=== PATIENT | female | born 1995 | race Caucasian/White ===

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

== ENCOUNTER 2017-06-05 17:05 | Emergency (ER) | payer BC ==
[~2017-06-05] VITALS: Ht 157.5 cm; Wt 54.0 kg
[2017-06-05 17:24] VITALS: TEMP 36.4; Ht 157.5 cm; Wt 54.0 kg
[2017-06-05] MEDS ORDERED: SODIUM CHLORIDE 0.9% 1000ML 1,000 ML IV STA (19:03)
--- NOTE | 2017-06-05 19:10 | EMERGENCY ROOM VISIT NOTE ---
History First contact with patient: 18:36 Chief Complaint: SYNCOPE Stated Complaint: DIZZINES, HEADACHE, SYNCOPE- [facility] REFERRED Nursing Triage Summary: pt reports dizzy and fainted this am went to [facility] sent here for further eval. was at [employer] this past weekend History of Present Illness The patient is a 22 year old female who presents to the Emergency Room with complaints of a syncopal episode which occurred this morning. The patient reports that today, she woke up prior to her 8 am class and felt dizzy immediately upon waking. She states that when she stood up, she passed out. She denies hitting her head when she passed out. She had a similar episode one week ago. The patient does report a history of syncopal episodes and has been told that her blood pressure runs low. She reports this is a hydration/ nutrition issue and she has attempted to alter her diet to help prevent these episodes. She does report that she participated in [employer] this weekend and did not have much to eat throughout the weekend. She does try to drink 2-3 bottles of water per day. She states that she has a mild headache at this time but denies any other complaints. The episode was not associated with any chest pain or shortness of breath. The patient has never followed up with a specialist regarding these episodes. She denies any alcohol or drug use. Review of Systems A complete 10 point review of systems was reviewed with the patient with pertinent positives and negatives as per history of present illness. All else were negative. Past Medical/Surgical History Medical Problems: (1) Migraine-cluster headache syndrome (2) Osteoid osteoma (3) Swollen lymph nodes Surgical Problems: (1) History of knee surgery Family History Cancer Diabetes mellitus Hypertension Kidney disease Kidney stones Social History Smoking Status: Never Smoker Alcohol Use: none Drug Use: none Marital Status: single Housing Status: lives with roommate Occupation Status: [employer] student Current/Historical Medications Scheduled Etonogestrel (Nexplanon), 68 MG INTRAD UD Physical Exam Vital Signs Date Time Temp Pulse Resp B/P (MAP) Pulse Ox O2 Delivery O2 Flow Rate FiO2 06/05/17 21:01 74 15 119/85 100 06/05/17 20:34 70 06/05/17 20:00 61 15 111/64 99 Room Air 59 119/75 74 124/85 06/05/17 20:00 100 Room Air 06/05/17 17:24 36.4 79 18 103/68 99 Room Air Physical Exam VITALS: Vitals are noted on the nurse's note and reviewed by myself. Vital signs stable. GENERAL: This is a 22-year-old female, in no acute distress, nondiaphoretic, well-developed well-nourished. SKIN: The skin was without rashes. HEAD: Normocephalic atraumatic. EARS: External auditory canals clear, tympanic membranes pearly perez without erythema or effusion bilaterally. EYES: Pupils equal round and reactive to light and accommodation. Extraocular movements intact. MOUTH: Mucous membranes moist. Tonsils are not enlarged. Pharynx without erythema or exudate. NECK: Supple without nuchal rigidity. No lymphadenopathy. HEART: Regular rate and rhythm without murmurs gallops or rubs. LUNGS: Clear to auscultation bilaterally without wheezes, rales or rhonchi. MUSCULOSKELETAL: Strength 5/5 throughout. NEURO: Patient was alert and oriented to person place and time. No focal neurological deficits. Medical Decision & Procedures Laboratory Results 06/05/17 19:20 Red Blood Count 4.44, Mean Corpuscular Volume 84.7, Mean Corpuscular Hemoglobin 28.8, Mean Corpuscular Hemoglobin Concent 34.0, Mean Platelet Volume 9.5, Neutrophils (%) (Auto) 40.2, Lymphocytes (%) (Auto) 48.7, Monocytes (%) (Auto) 8.8, Eosinophils (%) (Auto) 1.6, Basophils (%) (Auto) 0.5, Neutrophils # (Auto) 2.29, Lymphocytes # (Auto) 2.77, Monocytes # (Auto) 0.50, Eosinophils # (Auto) 0.09, Basophils # (Auto) 0.03 06/05/17 19:20 Test 06/05/17 19:10 06/05/17 19:20 Urine Color KAT Urine Appearance SL CLOUDY (CLEAR) Urine pH 7.0 (4.5-7.5) Urine Specific [place] 1.010 (1.000-1.030) Urine Protein NEG (NEG) Urine Glucose (UA) NEG (NEG) Urine Ketones NEG (NEG) Urine Occult Blood 3+ (NEG) Urine Nitrite NEG (NEG) Urine Bilirubin NEG (NEG) Urine Urobilinogen NEG (NEG) Urine Leukocyte Esterase NEG (NEG) Urine RBC >30 /hpf (0-4) Urine WBC 1-5 /hpf (0-5) Urine Epithelial Cells >30 /lpf (0-5) Urine Bacteria NEG (NEG) Urine Test NEG (NEG) White Blood Count 5.69 K/uL (4.8-10.8) Red Blood Count 4.44 M/uL (4.2-5.4) Hemoglobin 12.8 g/dL (12.0-16.0) Hematocrit 37.6 % (37-47) Mean Corpuscular Volume 84.7 fL (80-100) Mean Corpuscular Hemoglobin 28.8 pg (25-34) Mean Corpuscular Hemoglobin Concent 34.0 g/dl (32-36) Platelet Count 253 K/uL (130-400) Mean Platelet Volume 9.5 fL (7.4-10.4) Neutrophils (%) (Auto) 40.2 % Lymphocytes (%) (Auto) 48.7 % Monocytes (%) (Auto) 8.8 % Eosinophils (%) (Auto) 1.6 % Basophils (%) (Auto) 0.5 % Neutrophils # (Auto) 2.29 K/uL (1.4-6.5) Lymphocytes # (Auto) 2.77 K/uL (1.2-3.4) Monocytes # (Auto) 0.50 K/uL (0.11-0.59) Eosinophils # (Auto) 0.09 K/uL (0-0.5) Basophils # (Auto) 0.03 K/uL (0-0.2) RDW Standard Deviation 40.4 fL (36.4-46.3) RDW Coefficient of Variation 13.1 % (11.5-14.5) Immature Granulocyte % (Auto) 0.2 % Immature Granulocyte # (Auto) 0.01 K/uL (0.00-0.02) Anion Gap 7.0 mmol/L (3-11) Est Creatinine Clear Calc Drug Dose 78.0 ml/min Estimated GFR () 105.3 Estimated GFR (Non- 90.8 BUN/Creatinine Ratio 12.4 (10-20) Calcium Level 8.3 mg/dl (8.5-10.1) Total Bilirubin 0.3 mg/dl (0.2-1) Aspartate Amino Transf (AST/SGOT) 14 U/L (15-37) Alanine Aminotransferase (ALT/SGPT) 17 U/L (12-78) Alkaline Phosphatase 56 U/L (45-117) Troponin I < 0.015 ng/ml (0-0.045) Total Protein 7.3 gm/dl (6.4-8.2) Albumin 3.9 gm/dl (3.4-5.0) Globulin 3.4 gm/dl (2.5-4.0) Albumin/Globulin Ratio 1.2 (0.9-2) Thyroid Stimulating Hormone (TSH) 1.870 uIu/ml (0.300-4.500) Medications Administered Medications (Trade) Dose Ordered Sig/Monica Route Start Time Stop Time Status Last Admin Dose Admin Sodium Chloride 1,000 ml @ 999 mls/hr Q1H1M STAT IV 06/05/17 19:03 06/05/17 20:03 DC 06/05/17 20:06 999 MLS/HR ECG Per My Interpretation Rate (beats per minute): 51 Rhythm: sinus bradycardia (w/ sinus arrhythmia) Findings: no acute ischemic change, no ectopy Change: no significant change Medical Decision Differential diagnosis includes POTS, vasovagal syncope, dehydration, cardiogenic syncope, hypothyroidism, electrolyte abnormalities, anemia, among others. The patient is a 22-year-old female who presents today complaining of a syncopal episode which occurred this morning. Patient had an additional similar episode last week. She is asymptomatic at this time. She has had multiple syncopal episodes in the past and has had extensive workup here, including CTA of the chest on 2 separate occasions. Labs today revealed no leukocytosis, anemia or concerning electrolyte abnormalities. Patient is not . Urinalysis was not suggestive of infection. EKG was interpreted by myself and shows a sinus bradycardia, unchanged from previous EKGs. Orthostatic vital signs were measured and were found to be negative, however the nurse did report to me that upon initial position change, the patient became very tachycardic and had reproduction of symptoms. Her symptoms and persistent syncopal episodes may be secondary to underlying POTS. Her paperwork from [employer] also questions possibility of an eating disorder which may be attributing to the patient's symptoms as well. Either way, she should have close follow-up with [facility] and would likely benefit from cardiology evaluation. She was given information for a local detective. I encouraged her to continue to stay well-hydrated, especially before going to bed. Based on the patient's presentation and work up, I feel the patient is stable for outpatient treatment. The patient was educated to return to the emergency department for any worsening of their current condition or new/concerning symptoms. She will follow up with [facility] services/cardiology. Medication Reconcilliation Current Medication List: was personally reviewed by me Blood Pressure Screening Patient's blood pressure: Normal blood pressure Impression Primary Impression: Syncopal episodes Departure Information Dispostion Home / Self-Care Condition GOOD Referrals [facility] (PCP) Jose Carlos Ocampo MD Patient Instructions My [facility] Additional Instructions Make sure to keep well hydrated. You should consider adding electrolyte drinks such as Gatorade or Powerade. Take your time when sitting or standing from a lying down position. You should follow-up with cardiology for further workup. You have been provided with information for one of the local cardiologists. You may continue to follow up with [facility] services as needed for your symptoms. Return to the emergency department with any worsening or new/concerning symptoms. Problem Qualifiers Primary Impression: Syncopal episodes Syncope type: unspecified Qualified Codes: R55 - Syncope and collapse
[2017-06-05 19:35] LABS: BASO % 0.5 %; BASO ABS # 0.03 K/uL (0-0.2); EOS % 1.6 %; EOS ABS # 0.09 K/uL (0-0.5); HEMATOCRIT 37.6 % (37-47); HEMOGLOBIN 12.8 g/dL (12.0-16.0); IG# 0.01 K/uL (0.00-0.02); LYMPH % 48.7 %; LYMPH ABS # 2.77 K/uL (1.2-3.4); MEAN CELL VOLUME 84.7 fL (80-100); MEAN CORPUSCULAR HEMOGLOBIN 28.8 pg (25-34); MEAN PLATELET VOLUME 9.5 fL (7.4-10.4); MONO % 8.8 %; NEUT % 40.2 %; NEUT ABS # 2.29 K/uL (1.4-6.5); PLATELET COUNT 253 K/uL (130-400); RED CELL DISTRIBUTION WIDTH CV 13.1 % (11.5-14.5); RED CELL DISTRIBUTION WIDTH SD 40.4 fL (36.4-46.3); WHITE BLOOD COUNT 5.69 K/uL (4.8-10.8)
[2017-06-05 19:53] LABS: ALBUMIN 3.9 gm/dl (3.4-5.0); ALT/SGPT 17 U/L (12-78); BLOOD UREA NITROGEN 11 mg/dl (7-18); CALCIUM 8.3 mg/dl (8.5-10.1); CARBON DIOXIDE 26 mmol/L (21-32); CREATININE 0.91 mg/dl (0.60-1.20); GLUCOSE 81 mg/dl (70-99); POTASSIUM 3.7 mmol/L (3.5-5.1); SODIUM 140 mmol/L (136-145)
[2017-06-05 20:00] VITALS: O2SAT 100
[2017-06-05 20:03] LABS: ALKALINE PHOSPHATASE 56 U/L (45-117); AST/SGOT 14 U/L (15-37); TOTAL PROTEIN 7.3 gm/dl (6.4-8.2)
[2017-06-05 21:01] VITALS: BP 119/85; PULSE 74; O2SAT 100
[2017-06-05] MEDS ORDERED: ETON1IMP2 INTRAD (22:22)
== END 2017-06-05 21:28 | disposition home or self-care (01) ==
LOC: C.EDB 17:06
DX: R55 Syncope and collapse (principal); G44.009 Cluster headache syndrome, unspecified, not intractable; Z86.018 Personal history of other benign neoplasm; Z80.9 Family history of malignant neoplasm, unspecified; Z83.3 Family history of diabetes mellitus; Z82.49 Family history of ischemic heart disease and other diseases of the circulatory system; Z84.1 Family history of disorders of kidney and ureter